=== PATIENT | female | born 1965 | race Caucasian/White ===

== ENCOUNTER 2018-06-28 13:31 | Emergency (ER) | payer MEDICARE, BC ==
[~2018-06-28] VITALS: Ht 172.7 cm; Wt 93.9 kg
== END 2018-06-28 16:08 | disposition home or self-care (01) ==
LOC: ER 13:31
DX: R68.2 Dry mouth, unspecified (principal); M62.81 Muscle weakness (generalized); I10 Essential (primary) hypertension; D64.9 Anemia, unspecified; Z98.84 Bariatric surgery status; Z87.891 Personal history of nicotine dependence
CPT/HCPCS: 99282

== ENCOUNTER 2018-07-11 20:16 | Emergency (ER) | payer BC, MEDICARE ==
[~2018-07-11] VITALS: Ht 172.7 cm; Wt 93.9 kg
== END 2018-07-11 21:00 | disposition left against medical advice (07) ==
LOC: ER 20:16
DX: R33.9 Retention of urine, unspecified (principal)